=== PATIENT | female | born 1970 | race Two or more races ===

== ENCOUNTER 2017-04-16 12:55 | Emergency (ER) | payer OTHER, MEDICAID ==
[~2017-04-16] VITALS: Ht 137.2 cm; Wt 27.2 kg
[2017-04-16 14:35] LABS: BASOPHIL % 0.2 % (0-2); PLATELET COUNT 243 x10^3mcL (130-400); RED CELL DISTRIBUTION WIDTH 13.6 % (11.5-14.5)
[2017-04-16 14:36] LABS: CARBON DIOXIDE 26.9 mmol/L (21-32); CHLORIDE SERUM 102 mmol/L (98-107); CREATININE SERUM 0.5 mg/dL (0.6-1.0); GFR1 > 60 mL/min; GLUCOSE SERUM 159 mg/dL (74-106); POTASSIUM SERUM 3.9 mmol/L (3.5-5.1); SODIUM SERUM 138 mmol/L (136-145)
[2017-04-16 14:49] LABS: ALBUMIN 3.3 g/dL (3.4-5.0); ALKALINE PHOSPHATASE 147 U/L (46-116); ALT/SGPT 50 U/L (14-59); AST/SGOT 33 U/L (15-37); BILIRUBIN TOTAL 0.3 mg/dL (0.20-1.00); MAGNESIUM 2.2 mg/dL (1.8-2.4); T4(THYROXINE) 9.4 ug/dL (4.7-13.3); TOTAL PROTEIN, SERUM 8.4 g/dL (6.4-8.2)
[2017-04-16 15:06] LABS: UA SPECIFIC GRAVITY 1.015 (1.005-1.035); microscopic required? YES; urine erythrocyte NEGATIVE (NEGATIVE)
[2017-04-16 15:18] LABS: AMPHETAMINE QUAL UR NONE DETECTED (NEG <=1000)
[2017-04-16 17:42] VITALS: BP 130/95
== END 2017-04-16 17:42 | disposition home or self-care (01) ==
LOC: ED 12:55
PROVIDERS: Emergency Medicine
DX: R56.9 Unspecified convulsions (principal); E46 Unspecified protein-calorie malnutrition; R64 Cachexia
CPT/HCPCS: 82962; 83880; J7030; J7050; Q0092